=== PATIENT | female | born 1935 | race Caucasian/White ===

== ENCOUNTER 2021-12-29 14:21 | Emergency (ER) | payer OTHER ==
[~2021-12-29] VITALS: Ht 157.5 cm; Wt 52.2 kg
[2021-12-29] MEDS ORDERED: BUPROPION XL150 MG PO (14:30)
[2021-12-29] MEDS ORDERED: ESCITALOPRAM OX20 MG PO (14:30)
[2021-12-29] MEDS ORDERED: TRAZODONE HCL50 MG PO (14:31)
[2021-12-29] MEDS ORDERED: TROSPIUM CHLORI60 MG PO (14:31)
[2021-12-29] MEDS ORDERED: PROTECT PLUS S1 EACH PO (14:31)
[2021-12-29] MEDS ORDERED: CLONAZEPAM1 MG PO (14:31)
[2021-12-29] MEDS ORDERED: FOLIC ACID1 MG PO (14:32)
[2021-12-29] MEDS ORDERED: VALSARTAN-HCTZ1 EAC4 PO (14:32)
== END 2021-12-29 17:19 | disposition home or self-care (01) ==
LOC: ER 14:21
DX: S51.812A Laceration without foreign body of left forearm, initial encounter (principal); S00.83XA Contusion of other part of head, initial encounter; S10.83XA Contusion of other specified part of neck, initial encounter; S20.20XA Contusion of thorax, unspecified, initial encounter; S30.0XXA Contusion of lower back and pelvis, initial encounter; W18.39XA Other fall on same level, initial encounter; Y93.9 Activity, unspecified; Y92.018 Other place in single-family (private) house as the place of occurrence of the external cause; Y99.9 Unspecified external cause status